=== PATIENT | female | born 1990 | race Caucasian/White ===

== ENCOUNTER 2018-03-06 05:58 | Inpatient (IN) | payer OTHER ==
[~2018-03-06] VITALS: Ht 165.1 cm; Wt 78.0 kg
[~2018-03-06 05:58] MED LIST: CIPRO 500MG TA500 MG PO; MOTRIN 800MG T800 MG PO; PERCOCET 325 MG1 TA2 PO
--- NOTE | 2018-03-06 08:50 | Operative Report ---
Operative/Inv Procedure Report Surgery Date: 03/06/18 Name of Procedure: Repeat low flap transverse section Pre-Operative Diagnosis: Term previous section Post-Operative Diagnosis: Same uterine window Estimated Blood Loss: scant (500) Surgeon/Blanker Operator: Brock HERNANDES,Lanny Maharaj and Dr. Cj Aldana [facility] Anesthesia: block Operative/Procedure Note Note: Procedure note patient was taken the operating room placed supine position after adequate skin testing for spinal anesthesia the abdomen was prepped and draped the vagina was prepped and draped a Kaur was placed sterilely patient tolerated that well. At this point through an old Pfannenstiel skin incision skin was cut was carried down to rectus fascia using a Bovie was dissected bluntly as well as sharply off of the rectus sheet at this point the peritoneum was entered high into the abdomen the low blade the [place] was placed and lower end of the incision at this point the uterine window which is 4 cm x 3 cm was noted the uterus was entered with a knife dissected bluntly as well as sharply oral instruments were removed from the field cord around the baby's neck was 3 it was reducible at this point. The infant was handed to oil dispenser was waiting delivering to aid in resuscitation. Uterus was wiped clean with 2 wet dry last insurance free of her membranes uses oversewn running locking suture was indicated interrupted [id number] for hemostasis was apparent uses returned to abdominal cavity found to be hemostatic at this point the peritoneum was reapproximated 0 the fascia was reprocessed and to continue sutures #1 skin was reapproximated fabricio the uterine incision has had a wrist the applied to it prior to the closing of the peritoneum. The urine was clear mother and were transferred recovery room awake and alert counts correct
[2018-03-06 12:40] LABS: ABSOLUTE BASOPHIL COUNT 0.1 /CUMM (0.0-0.2); ABSOLUTE EOSINOPHIL COUNT 0.1 /CUMM (0.0-0.7); ABSOLUTE GRANULOCYTE CT 13.2 /CUMM (1.4-6.5); ABSOLUTE LYMPH COUNT 1.8 /CUMM (1.2-3.4); PLATELET COUNT 216 /CUMM (130-400)
[2018-03-06 12:42] LABS: ABSOLUTE MONOCYTE COUNT 0.8 /CUMM (0.10-0.60); BASOPHIL % 0.6 % (0.0-2.0); EOSINOPHIL % 0.4 % (0-5); GRANULOCYTE % 82.5 % (42.2-75.2); MEAN CORPUSCULAR HGB 30.1 PG (27.0-31.0); MEAN CORPUSCULAR HGB CONC 34.1 G/DL (33.0-37.0); MEAN CORPUSCULAR VOLUME 88.2 FL (81.0-99.0); MEAN PLATELET VOLUME 8.7 FL (7.4-10.4); RBC DISTRIBUTION WIDTH 15.1 % (11.5-14.5); RED BLOOD CELL CT 3.38 /CUMM (4.20-5.40)
[2018-03-06 12:43] LABS: HEMATOCRIT 29.8 % (37-47)
--- NOTE | 2018-03-06 12:58 | Cons- Medical ---
Markus Ramires MD 03/06/18 1257: General Information and HPI Consulting Request Date of Consult: 03/06/18 Requested By: Lanny Gutiérrez MD History of Present Illness: 28 year old woman with past medial history of vasogal syncope seen for evaluation of a recurrent episode of syncope. Patient underwent her thrid elective today with her OBGYN Dr. Lanny Gutiérrez which was done so uneventful without any significant operative blood loss. Patient was lying flat in bed post-operatively when she reportedly passed out. This was witness by her and multiple family member who offer collateral information and who were present during the interview. Patient was apparently moaning for which the nursing staff evaluated her and subsequently called a Code 3. Patient reportedly had "low blood pressure" during this brief episode for which she was started on intravenous fluids. Patient came aware after a short time without any specific symptoms. A medicine consult was then placed for further evaluation of these findings. Patient reportedly has had syncopal episodes with each of her previous pregnancies of which she underwent evaluation for cardiogenic causes by outreach professional Dr. Ralf Melendez who reporedly did a holter monitor for four days without any arrhythmia identified. Presently patient stats that she feels tired and admits to minor lower abdominal surgical site pain. She otherwise denies any headache, vision change, lightheadedness, chest pain, shortness of breath. Allergies/Medications Allergies: Coded Allergies: iodine (Severe, ANAPHYLAXIS 08/22/15) shellfish derived (Severe, ANAPHYLAXIS 08/22/15) Home Med List: Ibuprofen 800 MG TABLET 800 MG PO Q6P PRN UTERINE CRAMPING Oxycodone HCl/Acetaminophen (Percocet 5-325 MG Tablet) 5 MG-325 MG TABLET 1 TAB PO Q4P PRN PAIN SCALE 4-6 (MODERATE) Review of Systems Review of Systems Constitutional: Reports: see HPI. Past History Medical History Cardiovascular: syncope Surgical History Surgical History: Psychosocial History Smoking Status: Never Smoked Exam & Diagnostic Data Last 24 Hrs of Vital Signs/I&O Intake & Output 03/06 1600 03/06 0800 03/06 0000 Intake Total Output Total Balance Patient 78.018 kg Weight Refer to paper chart Physical Exam Other Physical Findings: General: well developed, well nourished pleasant young woman in no acute distress HEENT: NCAT, PERRL, EOMI, anicteric sclera Neck: Supple, no JVD, trachea midline Cardio: Normal S1/S2 w/o m/g/r; tachycardic Pulm: CTA bilaterally Abdomen: Soft, dressed lower abdominal surgical incision w/o drainage, BS+ Neuro: Awake and alert, CN II-XII grossly intact, speech intact/fluent Ext: normal pulses, no edema Last 24 Hrs of Labs/Silvestre: Laboratory Tests 03/06/18 1233: Anion Gap 9, CBC w Diff NO MAN DIFF REQ, RBC 3.38 L, MCV 88.2, MCH 30.1, MCHC 34.1, RDW 15.1 H, MPV 8.7, Gran % 82.5 H, Lymphocytes % 11.3 L, Monocytes % 5.2, Eosinophils % 0.4, Basophils % 0.6, Absolute Granulocytes 13.2 H, Absolute Lymphocytes 1.8, Absolute Monocytes 0.8 H, Absolute Eosinophils 0.1, Absolute Basophils 0.1 Assessment/Plan Assessment/Plan 28 year old woman with history of syncope admitted for her third elective c -section and post operatively had a syncopal episode. Vitals signs currently demonstrate a normal blood pressure with a heart rate in the 100s-110s on the monitor showing sinus tach. Physical examination demonstrates a pleasant young woman s/p admitting to fatigue and minor abdominal pain. Repeat labs demonstrate hemoglobin reduced from about 12 to 10 with WBC elevated to 16.0. EKG demonstrates sinus tachycardia without any concerning ST T-wave segment changes. Patient appears to have had an episode of vasovagal syncope in the context of recent surgery with a significant history of prior episodes all associated with . Problem List -Syncope, likely vasovagal -S/P third elective , POD #0 -Anemia, likely multifactorial -Leukocytosis, likely reactive -History of vasovagal syncope Plan -Monitor patient for further episodes, consider telemetry monitoring should she have further episodes -Cardiologists Dr. Melendez and Dr. Lawson made aware, follow their recommendations -Post-op care per OBGYN -Continue IV fluids for now for total of 2 liters -Monitor CBC daily for now -DVT PPx -Contact Medicine service (pager #[phone]) at onset of symptoms should they return Consult Acknowledgment - Thank you for your consult request. Emmanuel HERNANDES,Eli 03/06/18 1320: Assessment/Plan Consult Acknowledgment - Thank you for your consult request. Attending MD Review Statement Attending Statement Attending MD Statement: examined this patient, discuss w/resident/PA/LEARNING AND DEVELOPMENT INTERN, agreed w/resident/PA/LEARNING AND DEVELOPMENT INTERN, discussed with family, reviewed EMR data (avail), discussed with nursing, amended to note Attending Assessment/Plan: 28 y/o F s/p C Section today POD #0, had an episode where she became unresponsive, has transient hypoxia and hypotenstion. Code 3 was called. Then medicine consult obtained for further management. Upon further questioning patient and family mentioned that she has hx of syncope during her . This was her 3rd . First two times the syncope she had the presyncopal episodes while standing. She says she cn feel it. She gets a hot flush feeling in her bosy and she knows that its coming. She is able to sit down or hold onto something. She has seen Business Intelligence Director Dr. Melendez for this. She claims that She had a holter monitor about 5-6 years ago. According to the patient and family, it did not show anything. She denies any associated CP, SOB, no blurriness of vision. Denies any current headache. Does have some discomfort from today's surgery. vss. on exam; aox3, nad. cv; s1,s2, rrr resp; clear abd; soft, bs+ ext; no edema Laboratory Tests 03/06 1233 Chemistry Sodium (137 - 145 mmol/L) 137 Potassium (3.5 - 5.1 mmol/L) 4.2 Chloride (98 - 107 mmol/L) 106 Carbon Dioxide (22 - 30 mmol/L) 22 Anion Gap (5 - 16) 9 Hematology CBC w Diff NO MAN DIFF REQ WBC (4.8 - 10.8 /CUMM) 16.0 H RBC (4.20 - 5.40 /CUMM) 3.38 L Hgb (12.0 - 16.0 G/DL) 10.1 L Hct (37 - 47 %) 29.8 L MCV (81.0 - 99.0 FL) 88.2 MCH (27.0 - 31.0 PG) 30.1 MCHC (33.0 - 37.0 G/DL) 34.1 RDW (11.5 - 14.5 %) 15.1 H Plt Count (130 - 400 /CUMM) 216 MPV (7.4 - 10.4 FL) 8.7 Gran % (42.2 - 75.2 %) 82.5 H Lymphocytes % (20.5 - 51.1 %) 11.3 L Monocytes % (1.7 - 9.3 %) 5.2 Eosinophils % (0 - 5 %) 0.4 Basophils % (0.0 - 2.0 %) 0.6 Absolute Granulocytes (1.4 - 6.5 /CUMM) 13.2 H Absolute Lymphocytes (1.2 - 3.4 /CUMM) 1.8 Absolute Monocytes (0.10 - 0.60 /CUMM) 0.8 H Absolute Eosinophils (0.0 - 0.7 /CUMM) 0.1 Absolute Basophils (0.0 - 0.2 /CUMM) 0.1 EKG: pending. Assessmanet and recommendations: 28 y/o F s/p C Section today POD #0, had an episode where she became unresponsive, has transient hypoxia and hypotenstion. Code 3 was called. Then medicine consult obtained for further management. This was likely vasovagal episode. We obtained basic blood work. Will obtain EKG. Will obtain cardiology consult. Continue IVFs. Change position slowly when get up and always get up with assisstance. Avoid extra narcotics, antihistamines. Thank you for allowing us to participate in the care of your patients. Will follow along with you.
--- NOTE | 2018-03-06 18:28 | RADIOLOGY REPORT ---
AP CHEST X-RAY CLINICAL INFORMATION: Vasovagal syncope with tachycardia and leukocytosis. COMPARISON: None available. TECHNIQUE: Portable frontal view of the chest was obtained. FINDINGS: Low lung volumes. There is no focal consolidation, pleural effusion, or pneumothorax. Cardiac silhouette size is normal. There are no acute osseous findings. IMPRESSION: Low lung volumes. No focal pneumonia.
[2018-03-06 20:06] LABS: ABSOLUTE BASOPHIL COUNT 0 /CUMM (0.0-0.2); ABSOLUTE EOSINOPHIL COUNT 0 /CUMM (0.0-0.7); ABSOLUTE GRANULOCYTE CT 10.9 /CUMM (1.4-6.5); ABSOLUTE MONOCYTE COUNT 0.7 /CUMM (0.10-0.60); BASOPHIL % 0.1 % (0.0-2.0); EOSINOPHIL % 0.2 % (0-5); GRANULOCYTE % 86.3 % (42.2-75.2); MEAN CORPUSCULAR HGB 30.4 PG (27.0-31.0); MEAN CORPUSCULAR HGB CONC 34.5 G/DL (33.0-37.0); MEAN CORPUSCULAR VOLUME 88.2 FL (81.0-99.0); MEAN PLATELET VOLUME 9.3 FL (7.4-10.4); PLATELET COUNT 168 /CUMM (130-400); RBC DISTRIBUTION WIDTH 15.1 % (11.5-14.5); RED BLOOD CELL CT 2.79 /CUMM (4.20-5.40); WHITE BLOOD CELL COUNT 12.6 /CUMM (4.8-10.8)
[2018-03-06 20:07] LABS: HEMATOCRIT 24.6 % (37-47)
[2018-03-07 08:54] LABS: ABSOLUTE BASOPHIL COUNT 0 /CUMM (0.0-0.2); ABSOLUTE EOSINOPHIL COUNT 0.1 /CUMM (0.0-0.7); ABSOLUTE GRANULOCYTE CT 7.9 /CUMM (1.4-6.5); ABSOLUTE MONOCYTE COUNT 0.4 /CUMM (0.10-0.60); BASOPHIL % 0.4 % (0.0-2.0); EOSINOPHIL % 0.7 % (0-5); GRANULOCYTE % 83.5 % (42.2-75.2); HEMATOCRIT 24.7 % (37-47); MEAN CORPUSCULAR HGB 29.9 PG (27.0-31.0); MEAN CORPUSCULAR VOLUME 87.9 FL (81.0-99.0); MEAN PLATELET VOLUME 8.9 FL (7.4-10.4); PLATELET COUNT 121 /CUMM (130-400); RBC DISTRIBUTION WIDTH 14.8 % (11.5-14.5); RED BLOOD CELL CT 2.81 /CUMM (4.20-5.40); WHITE BLOOD CELL COUNT 9.5 /CUMM (4.8-10.8)
--- NOTE | 2018-03-07 12:10 | PN- Post Delivery/GYN ---
Subjective Subjective: POSITIVE FLATUS Objective Last 24 Hrs of Vital Signs/I&O PER CHART Physical Exam: PE THIN PALE WF IN NAD HEENTPERRLA EOMI ABD SOFT NT INCISION CDI [id number] Assessment/Plan Assessment/Plan ASSESS S/PC/S PLAN CONT AND ADVANCE PT CARE
--- NOTE | 2018-03-08 11:43 | PN- Post Delivery/GYN ---
Subjective Subjective: POSITIVE FLATUS Objective Last 24 Hrs of Vital Signs/I&O PER PAPER CHART STABLE Physical Exam: PE THIN WF INNAD ABD SOFT NT INCISION CDI EXT -EDEMA -HOMANS LOCHIA MINIMAL Assessment/Plan Assessment/Plan ASSESS S/P PLAN CONT PPC
[2018-03-09 08:25] LABS: ABSOLUTE BASOPHIL COUNT 0 /CUMM (0.0-0.2); ABSOLUTE EOSINOPHIL COUNT 0.1 /CUMM (0.0-0.7); ABSOLUTE GRANULOCYTE CT 6.7 /CUMM (1.4-6.5); ABSOLUTE LYMPH COUNT 0.9 /CUMM (1.2-3.4); ABSOLUTE MONOCYTE COUNT 0.5 /CUMM (0.10-0.60); BASOPHIL % 0.1 % (0.0-2.0); EOSINOPHIL % 1.8 % (0-5); GRANULOCYTE % 81.8 % (42.2-75.2); HEMATOCRIT 25.4 % (37-47); MEAN CORPUSCULAR HGB CONC 33.9 G/DL (33.0-37.0); MEAN CORPUSCULAR VOLUME 88.5 FL (81.0-99.0); MEAN PLATELET VOLUME 8.2 FL (7.4-10.4); PLATELET COUNT 144 /CUMM (130-400); RBC DISTRIBUTION WIDTH 14.9 % (11.5-14.5); RED BLOOD CELL CT 2.87 /CUMM (4.20-5.40); WHITE BLOOD CELL COUNT 8.2 /CUMM (4.8-10.8)
[2018-03-09] MEDS ORDERED: PERCOCET 5-3251 EACH PO (09:13)
[2018-03-09] MEDS ORDERED: IBUPROFEN800 M1 PO (09:13)
== END 2018-03-09 11:13 | DRG 540 ==
LOC: GNO 05:58
PROVIDERS: Specialist
PROC: 10D00Z1 Extraction of Products of Conception, Low, Open Approach (ICD-10-PCS; principal; 2018-03-06)
PROC: 30233N1 Transfusion of Nonautologous Red Blood Cells into Peripheral Vein, Percutaneous Approach (ICD-10-PCS; 2018-03-06)
DX: O34.211 Maternal care for low transverse scar from previous cesarean delivery (principal); N85.8 Other specified noninflammatory disorders of uterus; Z3A.39 39 weeks gestation of pregnancy; Z37.0 Single live birth; O90.81 Anemia of the puerperium; O90.89 Other complications of the puerperium, not elsewhere classified; D64.9 Anemia, unspecified; O69.1XX0 Labor and delivery complicated by cord around neck, with compression, not applicable or unspecified
CPT/HCPCS: GNOS; 36415; 71045; 81001; 86920; 87040; 87086; 88307; 93005; 93010; J0131; J1200; J1650; J1885; J2405; J7120; P9016